=== PATIENT | male | born 1960 | race Caucasian/White ===

== ENCOUNTER 2016-12-19 10:39 | Emergency (ER) | payer SELFPAY ==
[2016-12-19 11:04] LABS: BASO % 1 % (0-3); EOS # 0.3 x10^3/uL (0.0-0.7); EOS % 4 % (0-3); HEMATOCRIT 45.4 % (39.0-53.0); HEMOGLOBIN 15.4 g/dL (13.0-17.5); LYMPH # 1.6 x10^3/uL (1.0-4.8); LYMPH % 23 % (24-48); MEAN CORPUSCULAR HEMOGLOBIN 30 pg (25-35); MEAN CORPUSCULAR HGB CONC 34 g/dL (31-37); MEAN CORPUSCULAR VOLUME 88 fL (79-100); MONO # 0.8 x10^3/uL (0.0-1.1); MONO % 11 % (0-9); NEUT # 4.5 x10^3uL (1.8-7.7); NEUT % 63 % (31-73); PLATELET COUNT 164 x10^3/uL (140-400); RED BLOOD COUNT 5.17 x10^6/uL (4.30-5.70); RED CELL DISTRIBUTION WIDTH 14.6 % (11.5-14.5); WHITE BLOOD COUNT 7.2 x10^3/uL (4.0-11.0)
--- NOTE | 2016-12-19 11:10 | RAD ---
Exam: AP portable chest. History: Chest pain beginning today. Comparison: None. Findings: The heart and mediastinal structures are within normal limits for size. Lungs are without infiltrate. No pneumothorax or pleural effusion is appreciated. Impression: 1. No acute cardiopulmonary process.
[2016-12-19 11:17] LABS: ALBUMIN 3.6 g/dL (3.4-5.0); CALCIUM 8.5 mg/dL (8.5-10.1); CREATININE 0.9 mg/dL (0.7-1.3); DIRECT BILIRUBIN 0.1 mg/dL (0.0-0.2); GFR 87.9; POTASSIUM 3.6 mmol/L (3.5-5.1); TOTAL BILIRUBIN 0.2 mg/dL (0.2-1.0); TOTAL PROTEIN 7.1 g/dL (6.4-8.2)
--- NOTE | 2016-12-19 11:27 | PHYS DOC ---
Past History Past Medical History: No Pertinent History Past Surgical History: No Surgical History Smoking: Cigarettes Alcohol Use: None Drug Use: Cocaine Adult General Chief Complaint Chief Complaint: CHEST PAIN HPI HPI 56-year-old gentleman presenting to the emergency department today with chest pain. He arrives today by EMS. His chest pain started approximately 8:00 this morning. He reports cocaine use yesterday evening. He denies fevers or chills. The chest pain has resolved currently. The pain radiates into his left arm. He also complains of a headache. The pain is moderate. He describes it as a sharp shooting pain worse with deep inspiration. He denies nausea vomiting or diaphoresis. He denies a history of hyperlipidemia hypertension. He denies diabetes. He denies unilateral leg swelling hemoptysis personal or family history of blood clotting disorders. Review of systems is negative for abdominal pain nausea vomiting or diaphoresis. All other review of systems is negative unless otherwise noted in history of present illness. EKG interpretation: EKG shows sinus rhythm with a regular rate. [place] normal. No ST segment changes. Not consistent with ischemia. ED course: 56-year-old gentleman presenting to the emergency department with chest pain. Vital signs showed normal heart rate saturating well on room air. Patient was not tachycardic or hypoxic. EKG chest x-ray unremarkable including a negative troponin. The patient was then discharged home in stable condition to follow up with their primary care physician over the next 2-3 days. They were to return if their symptoms worsened or if they were concerned for any reason. [id number] discharge instructions and return precautions were given. Patient's questions were answered to their satisfaction. Patient is comfortable plan. Heart score 2. Review of Systems Review of Systems SEE ABOVE. Current Medications Current Medications Current Medications Medications (Trade) Dose Ordered Sig/[facility] Start Time Stop Time Status Last Admin Dose Admin Aspirin (Children'S Aspirin) 324 mg 1X ONCE 12/19/16 11:30 12/19/16 11:31 12/19/16 11:08 324 MG Allergies Allergies Allergies Coded Allergies Type Severity Reaction Last Updated Verified No Known Drug Allergies 12/19/16 No Physical Exam Physical Exam Constitutional: Well developed, well nourished, no acute distress, non-toxic appearance. HENT: Normocephalic, atraumatic, bilateral external ears normal, oropharynx moist, no oral exudates, nose normal. [] Eyes: PERRLA, EOMI, conjunctiva normal, no discharge. [] Neck: Normal range of motion, no tenderness, supple, no stridor. Cardiovascular:Heart rate regular rhythm, no murmur [] Lungs & Thorax: Bilateral breath sounds clear to auscultation Abdomen: Bowel sounds normal, soft, no tenderness, no masses, no pulsatile masses. [] Skin: Warm, dry, no erythema, no rash. [] Back: No tenderness, no CVA tenderness. Extremities: No tenderness, no cyanosis, no clubbing, ROM intact, no edema. [] No clinical evidence of DVT present. Neurologic: Alert and oriented X 3, normal motor function, normal sensory function, no focal deficits noted. Psychologic: Affect normal, judgement normal, mood normal. [] Current Patient Data Lab Results Laboratory Tests Test 12/19/16 10:50 White Blood Count 7.2 x10^3/uL (4.0-11.0) Red Blood Count 5.17 x10^6/uL (4.30-5.70) Hemoglobin 15.4 g/dL (13.0-17.5) Hematocrit 45.4 % (39.0-53.0) Mean Corpuscular Volume 88 fL (79-100) Mean Corpuscular Hemoglobin 30 pg (25-35) Mean Corpuscular Hemoglobin Concent 34 g/dL (31-37) Red Cell Distribution Width 14.6 % (11.5-14.5) H Platelet Count 164 x10^3/uL (140-400) Neutrophils (%) (Auto) 63 % (31-73) Lymphocytes (%) (Auto) 23 % (24-48) L Monocytes (%) (Auto) 11 % (0-9) H Eosinophils (%) (Auto) 4 % (0-3) H Basophils (%) (Auto) 1 % (0-3) Neutrophils # (Auto) 4.5 x10^3uL (1.8-7.7) Lymphocytes # (Auto) 1.6 x10^3/uL (1.0-4.8) Monocytes # (Auto) 0.8 x10^3/uL (0.0-1.1) Eosinophils # (Auto) 0.3 x10^3/uL (0.0-0.7) Basophils # (Auto) 0.0 x10^3/uL (0.0-0.2) Sodium Level 140 mmol/L (136-145) Potassium Level 3.6 mmol/L (3.5-5.1) Chloride Level 104 mmol/L (98-107) Carbon Dioxide Level 27 mmol/L (21-32) Anion Gap 9 (6-14) Blood Urea Nitrogen 10 mg/dL (8-26) Creatinine 0.9 mg/dL (0.7-1.3) Estimated GFR (Cockcroft-Gault) 87.9 Glucose Level 154 mg/dL (70-99) H Calcium Level 8.5 mg/dL (8.5-10.1) Total Bilirubin 0.2 mg/dL (0.2-1.0) Direct Bilirubin 0.1 mg/dL (0.0-0.2) Aspartate Amino Transferase (AST) 17 U/L (15-37) Alanine Aminotransferase (ALT) 18 U/L (16-63) Alkaline Phosphatase 290 U/L (46-116) H Troponin I Quantitative < 0.017 ng/mL (0-0.055) Total Protein 7.1 g/dL (6.4-8.2) Albumin 3.6 g/dL (3.4-5.0) Lipase 179 U/L (73-393) EKG EKG [] Radiology/Procedures Radiology/Procedures [] Course & Med Decision Making Course & Med Decision Making Pertinent Labs and Imaging studies reviewed. (See chart for details) [] Dragon Disclaimer Dragon Disclaimer This chart was dictated in whole or in part using Voice Recognition software in a busy, high-work load, and often noisy Emergency Department environment. It may contain unintended and wholly unrecognized errors or omissions. Departure Departure: Impression: Primary Impression: Chest pain Disposition: 01 HOME, SELF-CARE Condition: STABLE Referrals: PCP,NO (PCP) KAROLINA OSBORNE MD Patient Instructions: Chest Pain (Nonspecific) Additional Instructions: Thank you for allowing us to participate in your care today. Followup with your primary care physician in 3 days if your symptoms do not improve. If you do not have a primary care provider you can ask for a list of our primary care providers. Return to the emergency department you have any new or concerning findings. This should be evaluated by the primary care physician and any necessary consulting services for continued management within a few days after discharge. Return to emergency room if you have any new or concerning symptoms including but not limited to fever, chills, nausea, vomiting, intractable pain, any new rashes, chest pain, shortness of air, uncontrolled bleeding, difficulty breathing, and/or vision loss. You may have been prescribed medication that can change in your level of thinking and ability to operate machinery. These medications include hydrocodone and Ativan. Also, Benadryl has been known to do this as well. Be sure to check with your pharmacist and ask if the medications you've prescribed can affect your level of consciousness. I recommend not operating heavy machinery or driving while on medication such as these. PAMELA OYRK MD December 19, 2016 11:27
[2016-12-19] MEDS ORDERED: ASPIRIN 81 MG TAB.CHEW PO ONE (11:30)
--- NOTE | 2016-12-19 13:26 | EKG ---
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
[2016-12-19 14:30] VITALS: BP 130/73
== END 2016-12-19 14:30 | disposition home or self-care (01) ==
LOC: ER 10:39
DX: R07.9 Chest pain, unspecified (principal); R51 Headache; F17.210 Nicotine dependence, cigarettes, uncomplicated
CPT/HCPCS: 36415; 71010; 80048; 80076; 83690; 84484; 85027; 93005; 99285-25

== ENCOUNTER 2020-02-02 11:31 | Inpatient (IN) | payer SELFPAY ==
[~2020-02-02] VITALS: Ht 165.1 cm; Wt 76.9 kg
--- NOTE | 2020-02-02 11:36 | PHYS DOC ---
Past History Past Medical History: No Pertinent History Past Surgical History: No Surgical History Smoking: Cigarettes Alcohol Use: None Drug Use: Cocaine General Adult EDM: Chief Complaint: chest pain, left arm numbness HPI: HPI: Patient is a 59 year old male who presents for evaluation of acute onset left-s ided chest pain about 2 hours prior to arrival. He also has been having left arm numbness and tingling as well. 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 He also complains of shortness of air as well as dizziness. Patient was very anxious prior to arrival and had significant amount of sweats. Patient does not have a known cardiac history. Patient is Bahraini- speaking. Review of Systems: Review of Systems: Constitutional: Denies fever or chills Eyes: Blurry vision earlier today HENT: Denies nasal congestion or sore throat Respiratory: Denies cough or has shortness of breath Cardiovascular: Left-sided chest pain no edema GI: Denies abdominal pain, has nausea, no vomiting, no bloody stools no diarrhe a : Denies dysuria Musculoskeletal: Denies back pain or joint pain Integument: Denies rash Neurologic: Earlier headache, no focal weakness, has left arm sensory changes/numbness Endocrine: Denies polyuria or polydipsia Lymphatic: Denies swollen glands Psychiatric: Denies depression or anxiety Heart Score: HEART Score for Chest Pain: HEART Score for Chest Pain Response (Comments) Value History Moderately Suspicious 1 ECG Nonspecific Repolarizatio 1 Age >45 - < 65 1 Risk Factors No Risk Factors 0 Troponin < Normal Limit 0 Total 3 Risk Factors: Risk Factors: DM, Current or recent (<one month) smoker, HTN, HLP, family history of CAD, obesity. Risk Scores: Score 0 - 3: 2.5% MACE over next 6 weeks - Discharge Home Score 4 - 6: 20.3% MACE over next 6 weeks - Admit for Clinical Observation Score 7 - 10: 72.7% MACE over next 6 weeks - Early Invasive Strategies Allergies: Allergies: Allergies Coded Allergies Type Severity Reaction Last Updated Verified No Known Drug Allergies 12/19/16 No Physical Exam: PE: Constitutional: Well developed, well nourished, moderate acute distress. [] HENT: Normocephalic, atraumatic, bilateral external ears normal, oropharynx moist, no oral exudates, nose normal. [] Eyes: PERRL, EOMI, conjunctiva normal, no discharge. [] Neck: Normal range of motion, no tenderness, supple. [] Cardiovascular:Heart rate regular rhythm, no murmur [] Lungs & Thorax: Bilateral breath sounds clear to auscultation [] Abdomen: Bowel sounds normal, soft, no tenderness, no masses, no pulsatile masses. [] Skin: Warm, dry, no erythema, no rash. [] Back: No tenderness. [] Extremities: No tenderness, no cyanosis, no clubbing, ROM intact, no edema, subjective numbness left arm. [] Neurologic: Alert and oriented, normal motor function, no focal deficits noted. [] Psychologic: anxious Affect normal, judgement normal, mood abnormal. [] Current Patient Data: Labs: Laboratory Tests Test 02/02/20 11:57 White Blood Count 11.5 x10^3/uL Red Blood Count 4.79 x10^6/uL Hemoglobin 14.1 g/dL Hematocrit 42.3 % Mean Corpuscular Volume 88 fL Mean Corpuscular Hemoglobin 29 pg Mean Corpuscular Hemoglobin Concent 33 g/dL Red Cell Distribution Width 14.2 % Platelet Count 254 x10^3/uL Neutrophils (%) (Auto) 76 % Lymphocytes (%) (Auto) 15 % Monocytes (%) (Auto) 7 % Eosinophils (%) (Auto) 1 % Basophils (%) (Auto) 1 % Neutrophils # (Auto) 8.8 x10^3uL Lymphocytes # (Auto) 1.7 x10^3/uL Monocytes # (Auto) 0.8 x10^3/uL Eosinophils # (Auto) 0.1 x10^3/uL Basophils # (Auto) 0.1 x10^3/uL D-Dimer (Leigha) 0.22 mg/L Sodium Level 138 mmol/L Potassium Level 4.1 mmol/L Chloride Level 103 mmol/L Carbon Dioxide Level 25 mmol/L Anion Gap 10 Blood Urea Nitrogen 11 mg/dL Creatinine 1.1 mg/dL Estimated GFR (Cockcroft-Gault) 69.0 BUN/Creatinine Ratio 10 Glucose Level 101 mg/dL Calcium Level 9.0 mg/dL Total Bilirubin 0.3 mg/dL Aspartate Amino Transf (AST/SGOT) 18 U/L Alanine Aminotransferase (ALT/SGPT) 21 U/L Alkaline Phosphatase 90 U/L Troponin I Quantitative < 0.017 ng/mL Total Protein 7.5 g/dL Albumin 3.9 g/dL Albumin/Globulin Ratio 1.1 Lipase 143 U/L Current Medications Medications (Trade) Dose Ordered Sig/Tiana Route PRN Reason Start Time Stop Time Status Last Admin Dose Admin Sodium Chloride (Normal Saline Flush) 10 ml QSHIFT PRN IV AFTER MEDS AND BLOOD DRAWS 02/02/20 11:45 Aspirin (Aspirin Chewable) 324 mg 1X ONCE PO 02/02/20 12:45 02/02/20 12:46 DC EKG: EKG: EKG showed sinus tachycardia rate 102, incomplete right bundle branch block, otherwise unremarkable EKG, not STEMI, read at 11:36 AM [] Radiology/Procedures: Radiology/Procedures: [address] [address] IMAGING REPORT Signed PATIENT: JASON SANCHEZ ACCOUNT: [id number] : 1960 LOCATION: ER AGE: 59 SEX: M EXAM STATUS: PRE ER ORD. PHYSICIAN: VU CHO DO REASON: chest pain PROCEDURE: PORTABLE CHEST 1V EXAM: CHEST 1 VIEW History: Chest pain COMPARISON: 12/19/2016 TECHNIQUE: Single portable radiograph of the chest FINDINGS: The cardiac silhouette is unremarkable. The lungs are clear bilaterally. The costophrenic sulci are clear and well demarcated. IMPRESSION: No radiographic evidence of an acute cardiopulmonary process. Electronically signed by: Junior Trejo MD (02/02/2020 12:02 PM) [id number] DICTATED AND SIGNED BY: JUNIOR TREJO MD DATE: 02/02/20 1202 CC: PCP,NO; VU CHO DO ~ [] Impressions: [address] [address] IMAGING REPORT Signed PATIENT: JASON SANCHEZ ACCOUNT: [id number] : 1960 LOCATION: ER AGE: 59 SEX: M EXAM STATUS: PRE ER ORD. PHYSICIAN: CHO,VU M DO REASON: headache, left arm numbness PROCEDURE: CT CODE STROKE HEAD WO CT CODE STROKE HEAD WO History:Headache, left arm numbness Comparison: None. Technique: Noncontrast CT imaging was performed of the head. Exposure: One or more of the following individualized dose reduction techniques were utilized for this examination: 1. Automated exposure control 2. Adjustment of the mA and/or kV according to patient size 3. Use of iterative reconstruction technique. Findings: There is mild motion. No convincing acute extra-axial or parenchymal hemorrhage is identified. There is no significant intra-axial mass effect, midline shift, or extra-axial fluid collection. The glover-white differentiation of the major vascular territories is preserved. The ventricles, sulci, and cisterns are within normal limits in size and configuration. The mastoid air cells and the visualized paranasal sinuses are aerated. No acute calvarial abnormality is identified. Impression: 1. No acute intracranial hemorrhage is identified. Critical results were discussed with Dr. Cho at 02/02/2020 11:56 AM. Electronically signed by: Briseyda Liu MD (02/02/2020 12:00 PM) [id number] DICTATED AND SIGNED BY: BRISEYDA LIU MD DATE: 02/02/20 1200 CC: PCP,BRIAN; VU CHO DO ~ Course & Med Decision Making: Course & Med Decision Making Pertinent Labs and Imaging studies reviewed. (See chart for details) [] Dragon Disclaimer: Dragon Disclaimer: This electronic medical record was generated, in whole or in part, using a voice recognition dictation system. 1250 Case discussed with patient using foreign bilingual speech language pathologist. We advised him that his cardiac work-up thus far is unremarkable. We will keep him for overnight chest pain observation. Patient agreed to this plan 1310 Dr. Gray was contacted and will be the admitting physician. He will see patient in the hospital and we will order serial cardiac enzymes Departure Departure: Impression: Primary Impression: Precordial chest pain Additional Impression: Near syncope Disposition: ADMITTED INPATIENT Admitting Physician: Rajeev Gray Condition: STABLE Referrals: PCP,BRIAN (PCP) Scripts No Active Prescriptions or Reported Meds Justification of Admission: Justification of Admission: Justification of Admission Dx: Yes Angina: New-Onset VU CHO DO Feb 02, 2020 11:36
[2020-02-02] MEDS ORDERED: 0.9 % SODIUM CHLORIDE 10 ML DISP.SYRIN. IV PRN (11:45)
--- NOTE | 2020-02-02 12:03 | RAD ---
CT CODE STROKE HEAD WO History:Headache, left arm numbness Comparison: None. Technique: Noncontrast CT imaging was performed of the head. Exposure: One or more of the following individualized dose reduction techniques were utilized for this examination: 1. Automated exposure control 2. Adjustment of the mA and/or kV according to patient size 3. Use of iterative reconstruction technique. Findings: There is mild motion. No convincing acute extra-axial or parenchymal hemorrhage is identified. There is no significant intra-axial mass effect, midline shift, or extra-axial fluid collection. The glover-white differentiation of the major vascular territories is preserved. The ventricles, sulci, and cisterns are within normal limits in size and configuration. The mastoid air cells and the visualized paranasal sinuses are aerated. No acute calvarial abnormality is identified. Impression: 1. No acute intracranial hemorrhage is identified. Critical results were discussed with Dr. Cho at 02/02/2020 11:56 AM. Electronically signed by: Rishi Liu MD (02/02/2020 12:00 PM) [id number]
--- NOTE | 2020-02-02 12:05 | RAD ---
EXAM: CHEST 1 VIEW History: Chest pain COMPARISON: 12/19/2016 TECHNIQUE: Single portable radiograph of the chest FINDINGS: The cardiac silhouette is unremarkable. The lungs are clear bilaterally. The costophrenic sulci are clear and well demarcated. IMPRESSION: No radiographic evidence of an acute cardiopulmonary process. Electronically signed by: Junior Trejo MD (02/02/2020 12:02 PM) [id number]
[2020-02-02 12:11] LABS: BASO # 0.1 x10^3/uL (0.0-0.2); BASO % 1 % (0-3); EOS # 0.1 x10^3/uL (0.0-0.7); EOS % 1 % (0-3); HEMATOCRIT 42.3 % (39.0-53.0); HEMOGLOBIN 14.1 g/dL (13.0-17.5); LYMPH # 1.7 x10^3/uL (1.0-4.8); LYMPH % 15 % (24-48); MEAN CORPUSCULAR HEMOGLOBIN 29 pg (25-35); MEAN CORPUSCULAR HGB CONC 33 g/dL (31-37); MEAN CORPUSCULAR VOLUME 88 fL (79-100); MONO # 0.8 x10^3/uL (0.0-1.1); MONO % 7 % (0-9); NEUT # 8.8 x10^3uL (1.8-7.7); NEUT % 76 % (31-73); PLATELET COUNT 254 x10^3/uL (140-400); RED BLOOD COUNT 4.79 x10^6/uL (4.30-5.70); RED CELL DISTRIBUTION WIDTH 14.2 % (11.5-14.5); WHITE BLOOD COUNT 11.5 x10^3/uL (4.0-11.0)
[2020-02-02 12:22] LABS: CREATININE 1.1 mg/dL (0.7-1.3); POTASSIUM 4.1 mmol/L (3.5-5.1)
[2020-02-02 12:28] LABS: ALBUMIN 3.9 g/dL (3.4-5.0); ALBUMIN/GLOBULIN RATIO 1.1 (1.0-1.7); TOTAL BILIRUBIN 0.3 mg/dL (0.2-1.0); TOTAL PROTEIN 7.5 g/dL (6.4-8.2)
[2020-02-02] MEDS ORDERED: ASPIRIN CHEWABLE 81 MG TABLET. PO ONE (12:45)
[2020-02-02 13:14] LABS: BACTERIA,URINE 0 /HPF (0-FEW); BILIRUBIN,URINE NEG (NEG); CLARITY,URINE CLEAR; COLOR,URINE STRAW; GLUCOSE,URINE NEG (NEG); NITRITE,URINE NEG (NEG); RBC,URINE RARE /HPF (0-2); SQUAMOUS EPITHELIAL CELL,UR OCC /LPF; UROBILINOGEN,URINE 0.2 mg/dL (0.2 mg/dL); WBC,URINE RARE /HPF (0-4)
--- NOTE | 2020-02-02 13:25 | EKG ---
[address] [address] Test Date: 2020-02-02 Test Time: 11:34:19 Pat Name: JASON SANCHEZ Department: Room: Gender: M Bottler: : 1960 Requested By: VU BARGER Order Number: [id number] Reading MD: Measurements Intervals [place] Rate: 102 P: 62 LA: 142 QRS: -7 QRSD: 102 T: 34 QT: 336 QTc: 442 Interpretive Statements SINUS TACHYCARDIA LEFTWARD AXIS INCOMPLETE RIGHT BUNDLE BRANCH BLOCK OTHERWISE NORMAL ECG RI6.02 No previous ECG available for comparison
[2020-02-02] MEDS ORDERED: ONDANSETRON PF 4 MG/2 ML VIAL. IVP PRN (13:30)
--- NOTE | 2020-02-02 14:20 | NUR ---
Pt admitted to icu bed 4. Pt arrived on unit via gurney accompanied by ems. Pt belongings checked, vitals taken, head to toe completed. Pt received unit routines. Resting at time of note.
[2020-02-02 14:27] LABS: BARBITURATES NEG (NEG); BENZODIAZEPINES NEG (NEG); CANNABINOIDS NEG (NEG); COCAINE POS (NEG); METHADONE NEG (NEG); OPIATES NEG (NEG); PHENCYCLIDINE NEG (NEG)
[2020-02-02 14:33] LABS: AMPHETAMINE/METHAMPHETAMINE NEG (NEG)
[2020-02-02 15:00] VITALS: BP 137/80
--- NOTE | 2020-02-02 16:13 | HP ---
ADMIT DATE: 02/02/2020 ATTENDING PHYSICIAN: Dr. Puri. CHIEF COMPLAINT: Chest pain, left arm numbness. HISTORY OF PRESENT ILLNESS: The patient is a pleasant 59-year-old gentleman admitted to the ED with a 2-hour history of chest pain, left sided prior to arrival. He has had some left arm tingling. He has minimal risk factors. He also tested positive for cocaine metabolites. 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 He does not speak much Romanian. This is obtained through family and a service center representative. There is no cardiac history. In the ED, his ECG was nondiagnostic. He did not appear in heart failure. The first set of cardiac enzymes were negative. He is admitted then for rule out and monitoring. PAST MEDICAL HISTORY: Unobtainable. PAST SURGICAL HISTORY: Unobtainable. DRUG ALLERGIES: None. PRESCRIPTION MEDICATIONS: None. FAMILY HISTORY: Unobtainable. REVIEW OF SYSTEMS: Unobtainable due to the patient's language issues. PHYSICAL EXAMINATION: GENERAL: When I saw him, this is a pleasant gentleman in no acute distress. INITIAL VITAL SIGNS: Showed a blood pressure of 137/80, pulse is 85 and regular, temperature 97.1 degrees Fahrenheit, oxygen saturation 96% on room air. HEENT: Head is without trauma. Pupils are reactive. Sclerae nonicteric. Oropharynx is clear. NECK: Supple, no bruits identified. LUNGS: Otherwise clear. CARDIOVASCULAR: Showed regular heart tones. No gallops. Peripheral pulses are palpable and full. ABDOMEN: Soft, scaphoid, nontender, no organomegaly. Bowel sounds were hypoactive. EXTREMITIES: Show no cyanosis or edema. NEUROLOGIC: Focally intact. Speech is fluent. SKIN: Warm and dry. PERTINENT LABORATORY AND X-RAY STUDIES: An obligatory CT of the head was done and showed no acute changes. Chest x-ray was clear. Normal heart size without any decompensation or infiltrates. The resting 12-lead electrocardiogram was nondiagnostic. Chemistry panel all within normal range. CBC showed a hemoglobin of 14.1 grams, white count 11,500. ASSESSMENT: 1. This 59-year-old gentleman has atypical chest pain, noncardiac in nature. 2. Cocaine addiction. 3. Rule out coronary ischemia. PLAN: 1. Observation status. 2. Serial cardiac enzymes. 3. Diet as tolerated. BHARATHI PURI MD DR: ANGELLA/melanie JOB#: [id number] / [id number]
[2020-02-02 19:00] VITALS: BP 119/81
[2020-02-02 23:55] VITALS: BP 112/78
[2020-02-03 07:00] VITALS: BP 120/83
--- NOTE | 2020-02-03 09:35 | NUR ---
IV removed with no complications. Reviewed d/c instructions with pt, he reports understanding. Also reviewed d/c instructions with sister Kelley. Escorted pt to front of hospital via wheelchair. All belongings with pt.
--- NOTE | 2020-02-03 09:49 | DS ---
DATE OF DISCHARGE: 02/03/2020 ATTENDING PHYSICIAN: Dr. Puri. FINAL DISCHARGE DIAGNOSES: 1. Atypical chest pain, resolved, noncardiac in nature. 2. Cocaine abuse. 3. Coronary ischemia ruled out. HISTORY OF PRESENT ILLNESS: This is a 59-year-old gentleman who speaks little Maldivian. He presented to the ED with the family members with a 2-hour history of chest pain, left sided, localized. He has some left arm tingling. He has minimal risk factors, but his urine drug screen tested positive for cocaine metabolites. He was not in any heart failure. In the ED, his ECG was nondiagnostic. Chest x-ray was unremarkable. He was admitted for further rule-out and evaluation. PHYSICAL EXAMINATION: Please see my dictated note. PERTINENT LABORATORY AND X-RAY STUDIES: Three sets of cardiac enzymes were negative for coronary ischemia. No evidence of myocardial necrosis. Electrolytes within normal range, normal BUN and creatinine, electrolytes. Hemoglobin maintained at 14.1 g/[place] [address]. COURSE IN THE HOSPITAL: The patient was admitted. His pain subsided. His diet was advanced and he was hemodynamically stable. Three sets of cardiac enzymes serially showed no evidence of myocardial necrosis. He was doing better. He was ready for discharge. On the next day, we got a hold of his family. We explained to the family to help translate him, that he did not have a heart attack and it was strong encouragement to avoid further cocaine or other drug abuse. Whether or not he will follow this advice and stop his drug habit remains to be seen. He was therefore discharged from our hospital in stable condition with explicit instructions and followup care. No medications are necessary at this time. BHARATHI PURI MD DR: ANGELLA/melanie JOB#: [id number] / [id number]
== END 2020-02-03 09:29 | disposition home or self-care (01) | DRG 313 ==
LOC: ER 11:31 → OBSVTOIN 13:13 → ICU 13:13
PROVIDERS: ADMIT Hospitalist; ATTEND Hospitalist
DX: R07.89 Other chest pain (principal); Z79.899 Other long term (current) drug therapy; F14.10 Cocaine abuse, uncomplicated; F10.10 Alcohol abuse, uncomplicated
CPT/HCPCS: 36415; 70450; 71045; 80053; 80307; 81001; 83690; 84484; 85025; 85379; 93005; 99285-25